=== PATIENT | female | born 1990 | race Caucasian/White ===

== ENCOUNTER 2024-05-25 23:37 | Emergency (ER) | payer OTHER ==
[2024-05-25 23:44] VITALS: RESP 18; TEMP 97.4
--- NOTE | 2024-05-26 00:18 | ED ---
Psych HPI - General Chief Complaint: Psychiatric Symptoms Stated Complaint: Mental Health Time Seen by Provider: 05/25/24 23:46 Source: patient Mode of arrival: ambulatory - History of Present Illness Initial Comments: Patient is a 33-year-old woman with history of mood disorder who presents with complaint that she has been feeling worse than usual and having thoughts of taking an overdose. She states that things have been acting up for about 2 weeks now. Patient relates that she had initially been off of her psychiatric medicines and then she restarted those but she is not feeling any better. She states she does not currently have a practitioner that she sees as she just moved back to this area [place] of state. Complaint: suicidal ideation, feels depressed Onset/Timin -: week(s) Associated Psychiatric Symptoms: depression, suicidal ideation History of same: Yes Quality: getting worse Improves With: none Worsens With: none Associated Symptoms: denies other symptoms If Self Harm: admits thoughts of self harm - Related Data Previous Rx's Medication Instructions Recorded hydrOXYzine pamoate [Vistaril] 25 mg PO TID PRN #15 cap 05/26/24 Allergies Allergy/AdvReac Type Severity Reaction Status Date / Time tramadol Allergy Unknown Verified 05/25/24 23:41 Review of Systems ROS Statement: Those systems with pertinent positive or pertinent negative responses have been documented in the HPI. ROS Other: All systems not noted in ROS Statement are negative. Constitutional: Denies: fever Respiratory: Denies: cough, dyspnea Cardiovascular: Denies: chest pain, palpitations Gastrointestinal: Denies: abdominal pain, nausea, vomiting, diarrhea Genitourinary: Denies: dysuria, hematuria Musculoskeletal: Denies: back pain Skin: Denies: rash Neurological: Denies: headache, weakness Psychiatric: Reports: depression, suicidal thoughts. Denies: auditory hallucinations, visual hallucinations, homicidal thoughts Past Medical History Additional Past Medical History / Comment(s): anemia Past Surgical History: Tonsillectomy Past Psychological History: ADD/ADHD, Anxiety, Bipolar, Depression, PTSD Smoking Status: Current every day smoker, Vaper Past Alcohol Use History: Occasional Past Drug Use History: Marijuana General Exam Limitations: no limitations General appearance: alert, in no apparent distress Head exam: Present: atraumatic, normocephalic Eye exam: Present: normal appearance. Absent: scleral icterus, conjunctival injection Neck exam: Present: normal inspection Respiratory exam: Present: normal lung sounds bilaterally. Absent: respiratory distress, wheezes, rales, rhonchi, stridor, accessory muscle use Cardiovascular Exam: Present: regular rate, normal rhythm, normal heart sounds. Absent: systolic murmur, diastolic murmur, rubs, gallop GI/Abdominal exam: Present: soft. Absent: distended, tenderness, guarding, rebound, rigid, mass Extremities exam: Present: normal inspection, normal capillary refill. Absent: pedal edema, calf tenderness Back exam: Present: normal inspection. Absent: CVA tenderness (R), CVA tenderness (L) Neurological exam: Present: alert Psychiatric exam: Present: depressed, suicidal ideation. Absent: agitated, anxious, flat affect, manic, homicidal ideation Skin exam: Present: warm, dry, intact, normal color. Absent: rash Course Vital Signs 05/25/24 05/26/24 23:38 01:35 Temperature 97.4 F L Pulse Rate 71 78 Respiratory 18 18 Rate Blood Pressure 94/59 102/74 O2 Sat by Pulse 96 97 Oximetry Medical Decision Making - Medical Decision Making Was pt. sent in by a medical professional or institution ([facility], INSIDE WIREMAN, urgent care, hospital, or intermediate...) When possible be specific @ -[No] Did you speak to anyone other than the patient for history (EMS, parent, family, police, friend...)? What history was obtained from this source @ -[No] Did you review nursing and triage notes (agree or disagree)? Why? @ -[I reviewed and agree with nursing and triage notes] Were old charts reviewed (outside hosp., previous admission, EMS record, old EKG, old radiological studies, urgent care reports/EKG's, intermediate records)? Report findings @ -[No old charts were reviewed] Differential Diagnosis (chest pain, altered mental status, abdominal pain women, abdominal pain men, vaginal bleeding, weakness, fever, dyspnea, syncope, headache, dizziness, GI bleed, back pain, seizure, CVA, palpatations, mental health, musculoskeletal)? @ -Differential Mental Health Depression, anxiety, bipolar, psychosis, schizophrenia, borderline personality, situational depression, adjustment disorder, behavioral disorder, brain tumor, malingering, substance abuse, encephalopathy, medication reaction, dementia, hypothyroidism, degenerative neurologic disorder, lupus.... This is not meant to be all-inclusive list EKG interpreted by me (3pts min.). @ -[As above] X-rays interpreted by me (1pt min.). @ -[None done] CT interpreted by me (1pt min.). @ -[None done] U/S interpreted by me (1pt. min.). @ -[None done] What testing was considered but not performed or refused? (CT, X-rays, U/S, labs)? Why? @ -[None] What meds were considered but not given or refused? Why? @ -[None] Did you discuss the management of the patient with other professionals (professionals i.e. , PA, INSIDE WIREMAN, lab, RT, psych nurse, social service technician, dietary service aide, teacher, preventive medicine officer, top case assembler)? Give summary @ -[Case discussed with EPS personnel who staffed case with psychiatrist and arrange safety plan. Was smoking cessation discussed for >3mins.? @ -[No] Was critical care preformed (if so, how long)? @ -[No] Were there social determinants of health that impacted care today? How? (Homelessness, low income, unemployed, alcoholism, drug addiction, transportation, low edu. Level, literacy, decrease access to med. care, [facility], rehab)? @ -[No] Was there de-escalation of care discussed even if they declined (Discuss DNR or withdrawal of care, Hospice)? DNR status @ -[No] What co-morbidities impacted this encounter? (DM, HTN, Smoking, COPD, CAD, Cancer, CVA, ARF, Chemo, Hep., AIDS, mental health diagnosis, sleep apnea, morbid obesity)? @ -[None] Was patient admitted / discharged? Hospital course, mention meds given and route, prescriptions, significant lab abnormalities, going to OR and other pertinent info. @ -[Patient is a 33-year-old woman here with mood disorder and anxiety complaints. Patient seen by EPS and they did come up with safety plan, patient stable for outpatient care at this point. Undiagnosed new problem with uncertain prognosis? @ -[No] Drug Therapy requiring intensive monitoring for toxicity (Heparin, Nitro, Insulin, Cardizem)? @ -[No] Were any procedures done? @ -[No] Diagnosis/symptom? @ -[Acute mood disorder Acute anxiety Acute, or Chronic, or Acute on Chronic? @ -Acute Uncomplicated (without systemic symptoms) or Complicated (systemic symptoms)? @ -[Uncomplicated Side effects of treatment? @ -[No] Exacerbation, Progression, or Severe Exacerbation? @ -[No] Poses a threat to life or bodily function? How? (Chest pain, [place], [place], pneumonia, PE, COPD, DKA, ARF, appy, cholecystitis, CVA, Diverticulitis, Homicidal, Suicidal, threat to staff... and all critical care pts) @ -[No] Disposition Clinical Impression: Acute anxiety, Mood disorder Disposition: HOME SELF-CARE Condition: Good Instructions (If sedation given, give patient instructions): Mood Disorders (ED) Prescriptions: hydrOXYzine pamoate [Vistaril] 25 mg PO TID PRN #15 cap PRN Reason: Anxiety Is patient prescribed a controlled substance at d/c from ED?: No Referrals: None,Stated [Primary Care Provider] - 1-2 days
[2024-05-26 01:35] VITALS: BP 102/74; PULSE 78
== END 2024-05-26 01:36 | disposition home or self-care (01) ==
LOC: EC 23:37
DX: F39 Unspecified mood [affective] disorder (principal); F41.9 Anxiety disorder, unspecified; F17.290 Nicotine dependence, other tobacco product, uncomplicated; F12.90 Cannabis use, unspecified, uncomplicated; Z88.5 Allergy status to narcotic agent
CPT/HCPCS: 99285

== ENCOUNTER 2024-06-14 22:11 | Inpatient (IN) | payer MEDICAID, OTHER ==
--- NOTE | 2024-08-03 10:53 | XR ---
Site ID [facility] Jo Morocho ID [id number] EXAMINATION TYPE: XR chest 1V DATE OF EXAM: 06/18/2024 10:20 AM CLINICAL INDICATION: inpatient. Cough COMPARISON: THIS EXAM WAS READ DURING PACS DOWNTIME, NO PRIORS AVAILABLE. TECHNIQUE: XR chest 1V Frontal view of the chest. FINDINGS: Lungs/Pleura: There is no evidence of pleural effusion, focal consolidation, or pneumothorax. Pulmonary vascularity: Unremarkable. Heart/mediastinum: Cardiomediastinal silhouette is unremarkable. Musculoskeletal: No acute osseous pathology. Other findings: None IMPRESSION: No acute cardiopulmonary disease/process.
== END 2024-06-17 15:55 | disposition home or self-care (01) | DRG 756 ==
LOC: 3MHU 22:11 → UNDODISIN 06-17 17:20 → 3MHU 06-18 17:14 → UNDOADMIN 06-18 17:14
PROVIDERS: ADMIT Psychiatry & Neurology Psychiatry; ATTEND Psychiatry & Neurology Psychiatry
DX: R45.851 Suicidal ideations (principal); Z79.899 Other long term (current) drug therapy; F31.81 Bipolar II disorder; U07.1 COVID-19
CPT/HCPCS: 71045; 80053; 80306; 84443; 85025; 87635; 99285

== ENCOUNTER 2025-04-25 05:11 | Inpatient (IN) | payer MEDICAID, OTHER ==
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
[2025-04-25] MEDS: ACETAMINOPHEN TAB 325 MG TAB PO STA (07:00)
[2025-04-25 07:58] LABS: Amphetamine Screen,Urine Not Detected (NotDetected); Barbiturate Screen,Urine Not Detected (NotDetected); Benzodiazepines Screen,Urine Not Detected (NotDetected); Cocaine Screen,Urine Not Detected (NotDetected); Methadone Screen, Urine Not Detected (NotDetected); Opiate Screen,Urine Not Detected (NotDetected); Oxycodone Screen, Urine Not Detected (NotDetected); Phencyclidine Screen,Urine Not Detected (NotDetected); Tricyclic Antidepressant,Urine Not Detected (NotDetected); Urn Cannabinoid Scrn Detected (NotDetected)
[2025-04-25] MEDS ORDERED: HALOPERIDOL LACTATE 5 MG/ML 1 ML VIAL IM PRN (12:19)
[2025-04-25] MEDS ORDERED: MAG HYDROX/AL HYDROX/SIMETH 355 ML BOTTLE PO PRN (12:19)
[2025-04-25] MEDS ORDERED: LORazepam 2 MG/ML INJ IM PRN (12:19)
[2025-04-25] MEDS ORDERED: haloperidoL 5 MG TAB PO PRN (12:19)
[2025-04-25] MEDS ORDERED: MAGNESIUM HYDROXIDE 2,400 MG/30 ML CUP PO PRN (12:19)
[2025-04-25] MEDS ORDERED: LORazepam 1 MG TAB PO PRN (12:19)
[2025-04-25] MEDS: ACETAMINOPHEN TAB 325 MG TAB PO PRN (14:56)
[2025-04-25 15:04] LABS: Appearance,Urine Clear (Clear); Bilirubin,Urine Negative (Negative); Blood,Urine Negative (Negative); Color,Urine Colorless; Glucose,Urine (UA) Negative (Negative); Ketones,Urine Negative (Negative); Leukocyte Esterase,Urine Negative (Negative); Nitrite,Urine Negative (Negative); Protein,Urine Negative (Negative); Specific Gravity,Urine 1.004 (1.001-1.035); Urobilinogen,Urine <2.0 mg/dL (<2.0)
[2025-04-25] MEDS: IBUPROFEN 600 MG TAB PO PRN (20:56)
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
[2025-04-26 07:23] LABS: Basophils # (A) 0.06 10*3/uL (0.00-0.10); Basophils % (A) 0.6 %; Eosinophils # (A) 0.48 10*3/uL (0.04-0.35); Eosinophils % (A) 4.8 %; HCT 39.9 % (37.2-46.3); Lymphocytes # (A) 3.54 10*3/uL (0.90-5.00); Lymphocytes % (A) 35.1 %; MCH 30.1 pg (27.0-32.0); MCHC 32.6 g/dL (32.0-37.0); MCV 92.4 fL (80.0-97.0); Mean Platelet Volume 9.4 fL (9.5-12.2); Monocytes % (A) 6.9 %; Neutrophils # (A) 5.28 10*3/uL (1.80-7.70); Neutrophils % (A) 52.3 %; Platelet Count 370 10*3/uL (140-440); RBC 4.32 10*6/uL (4.10-5.20); RDW 14.3 % (11.5-14.5); WBC 10.09 10*3/uL (4.50-10.00)
[2025-04-26 07:36] LABS: ALT 19 U/L (4-34); AST 24 U/L (14-36); African American GFR (CKD) >90 (>60 ml/min/1.73 sqM); Albumin 4.1 g/dL (3.5-5.0); Alkaline Phosphatase 80 U/L (38-126); Anion Gap 10 mmol/L; Blood Urea Nitrogen 8 mg/dL (7-17); Calcium 9.7 mg/dL (8.4-10.2); Carbon Dioxide 27 mmol/L (22-30); Chloride 103 mmol/L (98-107); Glucose 91 mg/dL (74-99); Non-African American GFR(CKD) >90 (>60 ml/min/1.73 sqM); Potassium 4.2 mmol/L (3.5-5.1); Sodium 140 mmol/L (137-145); Total Bilirubin 0.6 mg/dL (0.2-1.3); Total Protein 6.8 g/dL (6.3-8.2)
[2025-04-26] MEDS: NICOTINE 14MG/24HR PATCH TRANSDERM SCH (09:18)
[2025-04-26] MEDS: THIAMINE 100 MG TAB PO SCH (09:18)
[2025-04-26] MEDS: FOLIC ACID 1 MG TAB PO SCH (09:18)
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
[2025-04-26] MEDS: busPIRone HCl 10 MG TAB PO SCH (15:07)
[2025-04-26] MEDS: FLUoxetine HCL 20 MG CAP PO SCH (15:07)
[2025-04-26 16:11] LABS: Chol/HDL Ratio 2.91 Ratio; LDL Cholesterol,Calculated 99.3 mg/dL (0.0-131.0); VLDL Calculation 18.06 mg/dL (5.00-40.00)
[2025-04-26] MEDS: metFORMIN 500 MG TAB PO SCH (17:46)
[2025-04-26] MEDS: OLANZapine 5 MG TAB PO SCH (21:19)
[2025-04-26] MEDS: MELATONIN 5 MG TABLET PO SCH (21:20)
--- NOTE | 2025-04-27 11:09 | P.PN ---
Progress Note - Text Progress Note Date: 04/27/25 Interval History: Patient was seen in bed and was directable and agreeable to speak with law writer in the office. She appeared more bright in affect, states she spoke to her yesterday and they are both interested in starting couples counseling. She is also interested in starting AA however is still not agreeable with rehab at this time. She reports sleeping better last night. She reports mild dry mouth. At this time patient denies any suicidal or homicidal ideations, intent or plan. P atient denies any auditory, visual hallucinations and denies any paranoia or delusions. Patient has been compliant with meds. Mental Status Exam: General Appearance: Patient appears to be stated age is alert, directable, and cooperative. Behavior: Patient is calmly seated without any agitated behavior. Speech: Patient's speech is fluent and nonpressured. Mood/Affect: Mood is improving mildly, affect is congruent and bright. Suicidality/Homicidality: Patient denies having any suicidal or homicidal ideation intent or plan. Perceptions: Patient denies any visual hallucinations and denies any auditory hallucinations Though content/process: There is no evidence of any delusional thought content and thought process is linear and goal-directed. Memory and concentration: AOX3, grossly intact for the purposes of this session Judgment and insight: Improving mildly Assessment Bipolar 2 disorder Anxiety, unspecified Cannabis use disorder Alcohol use disorder PTSD Borderline personality disorder Nicotine dependence Plan: -Patient continues to meet criteria for inpatient psychiatric admission for symptom stabilization and safety. Patient has signed adult voluntary form and medication consent and was placed in patient's chart. -Medications: Increase Prozac to 40 mg daily for depression/anxiety, continue Zyprexa 5 mg at bedtime for mood stabilization, metformin 500 mg twice daily for weight gain, BuSpar 10 mg twice daily for anxiety, melatonin 10 mg at bedtime for insomnia -When necessary Ativan and Haldol for agitation/aggression. -Labs: WNL -NRT - nicotine patch -SW on board for discharge planning. Encouraged the patient to participate in milieu. Anticipate discharge early next week, home with
[2025-04-27] MEDS: FLUoxetine HCL 20 MG CAP PO ONE (11:36)
[2025-04-28] MEDS: FLUoxetine HCL 20 MG CAP PO SCH (08:48)
--- NOTE | 2025-04-28 12:07 | P.PN ---
Progress Note - Text Progress Note Date: 04/28/25 Interval History: Patient was seen in the hallway and was directable and agreeable to speak with journalists and other writers in the office. She continues to appear bright in affect, however did state I almost had a panic attack this morning after finding out some of our partial rent payments were returned, but I did some meditation and was able to cope with that on my own. I remembered we have some one from [employer] helping us figure all that out. So yeah I feel better!. She rates her anxiety 10 and depression 10. She reports getting a full night of restful sleep. She denies any nightmares, denies suicidal or homicidal ideation, intent or plan. She denies any auditory or visual hallucinations and denies any paranoia or delusions. She denies any side effects from the increased dose of Prozac and continues to deny any loose stools from the Metformin. Patient continues to be compliant with her medications. She has reportedly been attending and participating well in the group sessions and is looking forward to visiting with her tomorrow. Mental Status Exam: General Appearance: Patient appears to be stated age is alert, directable, and cooperative. She has fair grooming and hygiene Behavior: Patient is calmly seated without any agitated behavior. Speech: Patient's speech is fluent and nonpressured. Mood/Affect: Mood is improving mildly, affect is congruent and bright, reactive. Suicidality/Homicidality: Patient denies having any suicidal or homicidal ideation intent or plan. Perceptions: Patient denies any visual hallucinations and denies any auditory hallucinations Though content/process: There is no evidence of any delusional thought content and thought process is linear and goal-directed. Memory and concentration: AOX3, grossly intact for the purposes of this session Judgment and insight: Improving mildly Assessment Bipolar 2 disorder Anxiety, unspecified Borderline personality disorder Cannabis use disorder PTSD Alcohol use disorder Nicotine dependence Plan: -Patient continues to meet criteria for inpatient psychiatric admission for symptom stabilization and safety. Patient has signed adult voluntary form and medication consent and was placed in patient's chart. -Medications: Continue Prozac 40 mg daily for depression/anxiety, Zyprexa 5 mg at bedtime for mood stabilization, metformin 500 mg twice daily for weight gain, BuSpar 10 mg twice daily for anxiety, melatonin 10 mg at bedtime for insomnia -When necessary Ativan and Haldol for agitation/aggression. -Labs: WNL -NRT - nicotine patch -SW on board for discharge planning. Encouraged the patient to participate in milieu. Anticipate discharge home with on Thursday
--- NOTE | 2025-04-29 12:25 | P.PN ---
Progress Note - Text Progress Note Date: 04/29/25 Dictation was produced using [employer] dictation software. Please excuse any grammatical, word or spelling errors. Interval history: Patient was seen attending the group this morning and was directable and agreeable to speak with the freelance writer in the office for psychiatric follow-up. The patient states that she is feeling better today, with less depression and anxiety, she rated depression at 3/10, and anxiety at 2/10. She denied any current SI/HI or self harm. She denied any AVH, paranoia or delusions. Admitted to good sleep last night, and good appetite. She is tending to her ADL, she attends the groups, and is getting along well with everyone in the unit. She has been compliant with her medication, she denied any side effects. She states that she is future oriented and is looking forward to going back to her . She is planning on following up with [facility]. Mental Status Exam: General Appearance: Patient appears to be stated age is alert, directable, and cooperative. She has fair grooming and hygiene Behavior: Patient is calmly seated without any agitated behavior. Speech: Patient's speech is fluent and nonpressured. Mood/Affect: Mood is improving mildly, affect is congruent and bright, reactive. Suicidality/Homicidality: Patient denies having any suicidal or homicidal sheldon ation intent or plan. Perceptions: Patient denies any visual hallucinations and denies any auditory hallucinations Though content/process: There is no evidence of any delusional thought content and thought process is linear and goal-directed. Memory and concentration: AOX3, grossly intact for the purposes of this session Judgment and insight: Improving mildly Assessment Bipolar 2 disorder Anxiety, unspecified Borderline personality disorder Cannabis use disorder PTSD Alcohol use disorder Nicotine dependence Assessment/Plan: Continue with current diagnosis. Patient continues to meet criteria for inpatient psychiatric admission for symptom stabilization and safety. Patient will be maintained on current psychotropic medication regimen which include Prozac 40 mg p.o. daily, Zyprexa 5 mg p.o. at bedtime, BuSpar 10 mg p.o. twice daily, melatonin 10 mg p.o. hs, and metformin 500 mg p.o. twice daily. No changes today monitor for medication compliance and for any psychotropic medication side effects, she denied any muscle stiffness, rigidity, abnormal movement, or drooling. Will continue to monitor ongoing response to treatment. Encouraged participation in milieu.
--- NOTE | 2025-04-30 11:09 | P.PN ---
Progress Note - Text Progress Note Date: 04/30/25 Dictation was produced using [employer] dictation software. Please excuse any grammatical, word or spelling errors. Interval history: Patient was seen in the hallway and was directable and agreeable to speak with the scientific writer in the office for psychiatric follow-up. The patient states that she is doing really well, states that she is less anxious and is less depressed. She rated depression at 3/10, and anxiety at 2/10. She denied any current SI/HI or self harm. She denied any current AVH, or paranoia. States that she feel safe in the unit, and is getting a long well with every one, states that she has been attending the groups. She states that her mother visited her yesterday and she is happy about it. She has been compliant with her medications, she denied any side effects. She states that the social research assistant will set up her out patient appointment with [facility], and she is planning on going back to her after discharge. Mental Status Exam: General Appearance: Patient appears to be stated age is alert, directable, and cooperative. She has fair grooming and hygiene Behavior: Patient is calmly seated without any agitated behavior. Speech: Patient's speech is fluent and nonpressured. Mood/Affect: Mood is improving mildly, affect is congruent and bright, reactive. Suicidality/Homicidality: Patient denies having any suicidal or homicidal ideation intent or plan. Perceptions: Patient denies any visual hallucinations and denies any auditory hallucinations Though content/process: There is no evidence of any delusional thought content and thought process is linear and goal-directed. Memory and concentration: AOX3, grossly intact for the purposes of this session Judgment and insight: Improving mildly Assessment Bipolar 2 disorder Anxiety, unspecified Borderline personality disorder Cannabis use disorder PTSD Alcohol use disorder Nicotine dependence Assessment/Plan: Continue with current diagnosis. Patient continues to meet criteria for inpatient psychiatric admission for symptom stabilization and safety. Patient will be maintained on current psychotropic medication regimen which include Prozac 40 mg p.o. daily, Zyprexa 5 mg p.o. at bedtime, BuSpar 10 mg p.o. twice daily, melatonin 10 mg p.o. hs, and metformin 500 mg p.o. twice daily. No changes today monitor for medication compliance and for any psychotropic medication side effects, she denied any muscle stiffness, rigidity, abnormal movement, or drooling. Will continue to monitor ongoing response to treatment. Encouraged participation in milieu.
[2025-04-30 22:34] VITALS: RESP 17
[2025-05-01 08:40] VITALS: BP 133/88; PULSE 99; TEMP 97.8
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
== END 2025-05-01 14:02 | disposition home or self-care (01) | DRG 753 ==
LOC: EC 05:11 → 3MHU 11:54
PROVIDERS: ADMIT Psychiatry & Neurology Psychiatry; ATTEND Psychiatry & Neurology Psychiatry
DX: F31.81 Bipolar II disorder (principal); D64.9 Anemia, unspecified; F10.10 Alcohol abuse, uncomplicated; F12.90 Cannabis use, unspecified, uncomplicated; F17.200 Nicotine dependence, unspecified, uncomplicated; F41.0 Panic disorder [episodic paroxysmal anxiety]; F43.10 Post-traumatic stress disorder, unspecified; F60.3 Borderline personality disorder; F90.9 Attention-deficit hyperactivity disorder, unspecified type; G47.00 Insomnia, unspecified; R45.851 Suicidal ideations; Y04.0XXA Assault by unarmed brawl or fight, initial encounter; Z79.84 Long term (current) use of oral hypoglycemic drugs; Z79.899 Other long term (current) drug therapy; Z81.8 Family history of other mental and behavioral disorders; Z91.148 Patient's other noncompliance with medication regimen for other reason; Z11.52 Encounter for screening for COVID-19
CPT/HCPCS: 80053; 80061; 80306; 81003; 81025; 82075; 83036; 84443; 85025; 87635; 99285